=== PATIENT | female | born 1975 | race Caucasian/White ===

== ENCOUNTER → 2016-06-28 | Outpatient (CLI) | payer BC ==
[~2016-06-28] MED LIST: AMOX500C3 PO; BUPR75TA20 PO; DICY10CA55 PO; OMAPRAZOLE; OMEP40CA PO; ONDA4TAB65 PO; OXYC1TAB3 PO
== END | disposition home or self-care (01) ==
LOC: C.PAPS 16:29
PROVIDERS: ATTEND Obstetrics & Gynecology
DX: Z01.419 Encounter for gynecological examination (general) (routine) without abnormal findings (principal)

== ENCOUNTER → 2016-06-28 | Outpatient (CLI) | payer BC | END | disposition home or self-care (01) | LOC: C.LABSPEC 15:54 | PROVIDERS: ATTEND Obstetrics & Gynecology | DX: N89.8 Other specified noninflammatory disorders of vagina (principal) ==

== ENCOUNTER → 2016-06-28 | Outpatient (CLI) | payer BC ==
--- NOTE | 2016-06-28 15:33 | MAMMOGRAPHY REPORT ---
BILATERAL DIGITAL SCREENING MAMMOGRAM TOMOSYNTHESIS WITH CAD: 06/28/2016 CLINICAL HISTORY: Routine screening. Patient has no complaints. TECHNIQUE: Breast tomosynthesis in addition to standard 2D mammography was performed. Current study was also evaluated with a Computer Aided Detection (CAD) system. COMPARISON: Comparison is made to exams dated: 07/25/2012 mammogram - [facility], 01/27/2008, 02/19/2013 ultrasound, 02/19/2013 mammogram, 07/24/2011 ultrasound - [facility], and 09/24/2007. BREAST COMPOSITION: The tissue of both breasts is heterogeneously dense, which may obscure small ma sses. FINDINGS: There are multiple bilateral circumscribed masses scattered throughout the breasts, fluctu ating in size comparing to prior available mammograms, most compatible with fluctuating cysts. Ther e is a ribbon shaped metallic biopsy marker in the far superior, posterior right breast, only seen o n the MLO view denoting the site of prior benign biopsy. There are a few benign-appearing microcalc ifications bilaterally. No suspicious spiculated or irregular mass, focal architectural distortion or cluster of suspicious microcalcifications is seen. IMPRESSION: ACR BI-RADS CATEGORY 1: NEGATIVE There is no mammographic evidence of malignancy. A 1 year screening mammogram is recommended. The p atient will receive written notification of the results. Approximately 10% of breast cancers are not detected with mammography. A negative mammographic repor t should not delay biopsy if a clinically suggestive mass is present. Elmira Zimmerman M.D. ay/:06/28/2016 15:13:06 [place] Worker: Lara MARTINEZ(Tracee)(M), [facility] letter sent: Normal 1/2 BI-RADS Code: ACR BI-RADS Category 1: Negative
== END | disposition home or self-care (01) ==
LOC: C.MAMM 12:27
PROVIDERS: ATTEND Nurse Practitioner Family
DX: Z12.31 Encounter for screening mammogram for malignant neoplasm of breast (principal)

== ENCOUNTER 2016-11-26 12:52 | Emergency (ER) | payer BC ==
[~2016-11-26] VITALS: Ht 165.1 cm; Wt 75.2 kg
[~2016-11-26 12:52] MED LIST changes: -AMOX500C3 PO; -DICY10CA55 PO; -ONDA4TAB65 PO
[2016-11-26 12:59] VITALS: TEMP 36.8; Ht 165.1 cm; Wt 75.2 kg
[2016-11-26] MEDS ORDERED: MoRPHine SULFATE 10 MG/ML CARP/VIAL IV STA (13:17)
[2016-11-26] MEDS ORDERED: ONDANSETRON INJ 2 MG/ML 2 ML VIAL IV STA (13:17)
[2016-11-26] MEDS ORDERED: SODIUM CHLORIDE 0.9% 1000ML 1,000 ML IV STA (13:17)
[2016-11-26 13:55] LABS: BASO % 0.2 %; BASO ABS # 0.02 K/uL (0-0.2); COMPLETE YES; EOS % 0.2 %; HEMATOCRIT 45.8 % (37-47); IG% 0.2 %; LYMPH % 16.3 %; LYMPH ABS # 1.86 K/uL (1.2-3.4); MEAN CORPUSCULAR HGB CONC 34.5 g/dl (32-36); MEAN PLATELET VOLUME 10.1 fL (7.4-10.4); MONO % 6.5 %; NEUT % 76.6 %; PLATELET COUNT 303 K/uL (130-400); RED BLOOD COUNT 5.09 M/uL (4.2-5.4); WHITE BLOOD COUNT 11.44 K/uL (4.8-10.8)
[2016-11-26] MEDS ORDERED: OPTIRAY 320 IV PRN (14:00)
[2016-11-26 14:02] LABS: BUN/CREATININE RATIO 12.9 (10-20); CALCIUM 9.2 mg/dl (8.5-10.1); POTASSIUM 3.7 mmol/L (3.5-5.1)
[2016-11-26] MEDS ORDERED: AMOX500C3 PO (14:15)
[2016-11-26] MEDS ORDERED: ONDA4TAB65 PO (14:15)
[2016-11-26 14:39] LABS: URINE APPEARANCE CLEAR (CLEAR); URINE BILIRUBIN NEG (NEG); URINE COLOR YELLOW; URINE NITRITE NEG (NEG); URINE SPECIFIC GRAVITY 1.004 (1.000-1.030); UROBILINOGEN NEG (NEG); ZZUR CULT IF INDIC CLEAN CATCH NO
[2016-11-26 14:48] LABS: MANUAL MICROSCOPIC REQUIRED? NO; REVIEW REQ? NO
--- NOTE | 2016-11-26 16:14 | DIAGNOSTIC IMAGING REPORT ---
CT ABD/PELVIS IV AND ORAL CONT CLINICAL HISTORY: Persistent right lower quadrant abdominal pain. Bloody stools. COMPARISON STUDY: 08/18/2010 TECHNIQUE: Following the IV administration of 94 mL of Optiray-320, CT scan of the abdomen and pelvis was performed from the lung bases to the proximal femurs. Images are reviewed in the axial, sagittal, and coronal planes. IV contrast was administered without complication. A dose lowering technique was utilized adhering to the principles of ALARA. CT DOSE: 507.32 mGy.cm FINDINGS: Lower chest: There are multiple bilateral breast masses. Prior mammographic evaluation, felt that these represent fluctuating cysts. There is mild basilar atelectasis. Liver: The contrast-enhanced liver is normal in size, contour, and attenuation. There is no intrahepatic biliary ductal dilatation. The hepatic veins and portal veins are patent. Gallbladder: Unremarkable. Spleen: Normal in size and attenuation. Pancreas: Unremarkable. Adrenal glands: Unremarkable. Kidneys: There is symmetric renal cortical enhancement. The kidneys are normal in size without hydronephrosis. Bowel: There are no transition zones indicate bowel obstruction. There is no acute appendicitis. There are no findings to indicate acute diverticulitis. There is scattered colonic diverticula present. Peritoneum: There is no intraperitoneal free air or abdominal ascites. Vasculature: The abdominal aorta is normal in course and caliber. Adenopathy: None. Pelvic viscera: There is a 14 mm right ovarian follicle. The uterus is retroverted. Skeletal structures: No destructive osseous lesions are seen. IMPRESSION: 1. No evidence of bowel obstruction. No evidence of free air 2. No evidence of acute appendicitis 3. No evidence of acute diverticulitis. No acute inflammatory changes identified Electronically signed by: Reji Chua M.D. 11/26/2016 4:13 PM Dictated Date/Time: 11/26/2016 4:08 PM
[2016-11-26] MEDS ORDERED: DICY10CA55 PO (16:29)
--- NOTE | 2016-11-26 16:32 | EMERGENCY ROOM VISIT NOTE ---
History First contact with patient: 13:02 Chief Complaint: ABDOMINAL PAIN Stated Complaint: EXTREME ABD PAIN AND ANAL BLEEDING Nursing Triage Summary: Pt reports abdominal for 2weeks, seen by PCP last week provided stool sample on Sunday. Pt reports when she saw her PCP the pain was primarily in the RLQ. Pt now reports pain is diffuse across the entire abdomen. Pt reports being up from approx [id number] with cramping severe 10/10 abdominal pain, nausea, sweating. Now rates pain 8/10. Pt also reports blood in her stool charmaine time she moves her bowels. History of Present Illness The patient is a 41 year old female who presents to the Emergency Room with complaints of abdominal pain. The patient states that she has had "stomach problems" for the past 3 weeks. She reports she has had pain in the right lower abdomen as well as diarrhea. She was seen by her primary care provider last week and they ordered stool studies. She states that she took the stool sample to the lab 2 days ago but is unsure of the results. She states that she has been having pain in the right lower quadrant of her abdomen She states that she woke up from sleep this morning with severe pain all over her abdomen. She states that the pain has been severe since then. She has had associated nausea. She rates her discomfort an 8/10. She has had blood in the stools for the past few days. She does report a history of H. pylori infections and a history of diverticulitis. She states her last menstrual period was a few weeks ago. She denies vaginal discharge, urinary symptoms, chest pain or shortness of breath. Review of Systems A complete 10 point review of systems was reviewed with the patient with pertinent positives and negatives as per history of present illness. All else were negative. Social History Smoking Status: Never Smoker Current/Historical Medications Scheduled Amoxicillin (Amoxil), 500 MG PO TID Ondansetron Hcl (Zofran), Unknown Dose PO Q8 Scheduled PRN Dicyclomine Hcl (Bentyl), 1 CAP PO TID PRN for Pain Allergies Coded Allergies: Escitalopram (Verified Allergy, Unknown, rash/numb, 11/26/16) Physical Exam Vital Signs Date Time Temp Pulse Resp B/P (MAP) Pulse Ox O2 Delivery O2 Flow Rate FiO2 11/26/16 16:38 63 16 117/74 97 11/26/16 15:31 70 16 117/74 97 Room Air 11/26/16 14:01 77 18 134/87 99 Room Air 11/26/16 12:59 36.8 92 18 121/80 98 Room Air Physical Exam VITALS: Vitals are noted on the nurse's note and reviewed by myself. Vital signs stable. GENERAL: This is a 41-year-old female, in no acute distress, nondiaphoretic, well-developed well-nourished. HEENT: Normocephalic. PERRLA. EOMI. Nares patent. Mucous membranes moist. Neck is supple without nuchal rigidity. HEART: Regular rate and rhythm without murmurs gallops or rubs. LUNGS: Clear to auscultation bilaterally without wheezes, rales or rhonchi. ABDOMEN: Positive bowel sounds x 4. Soft, mild generalized tenderness to palpation. No focal tenderness. No guarding or rebound tenderness. NEURO: Patient was alert and oriented to person place and time. Medical Decision & Procedures ER Provider Diagnostic Interpretation: CT ABD/PELVIS IV AND ORAL CONT FINDINGS: Lower chest: There are multiple bilateral breast masses. Prior mammographic evaluation, felt that these represent fluctuating cysts. There is mild basilar atelectasis. Liver: The contrast-enhanced liver is normal in size, contour, and attenuation. There is no intrahepatic biliary ductal dilatation. The hepatic veins and portal veins are patent. Gallbladder: Unremarkable. Spleen: Normal in size and attenuation. Pancreas: Unremarkable. Adrenal glands: Unremarkable. Kidneys: There is symmetric renal cortical enhancement. The kidneys are normal in size without hydronephrosis. Bowel: There are no transition zones indicate bowel obstruction. There is no acute appendicitis. There are no findings to indicate acute diverticulitis. There is scattered colonic diverticula present. Peritoneum: There is no intraperitoneal free air or abdominal ascites. Vasculature: The abdominal aorta is normal in course and caliber. Adenopathy: None. Pelvic viscera: There is a 14 mm right ovarian follicle. The uterus is retroverted. Skeletal structures: No destructive osseous lesions are seen. IMPRESSION: 1. No evidence of bowel obstruction. No evidence of free air 2. No evidence of acute appendicitis 3. No evidence of acute diverticulitis. No acute inflammatory changes identified Laboratory Results 11/26/16 13:31 Red Blood Count 5.09, Mean Corpuscular Volume 90.0, Mean Corpuscular Hemoglobin 31.0, Mean Corpuscular Hemoglobin Concent 34.5, Mean Platelet Volume 10.1, Neutrophils (%) (Auto) 76.6, Lymphocytes (%) (Auto) 16.3, Monocytes (%) (Auto) 6.5, Eosinophils (%) (Auto) 0.2, Basophils (%) (Auto) 0.2, Neutrophils # (Auto) 8.78, Lymphocytes # (Auto) 1.86, Monocytes # (Auto) 0.74, Eosinophils # (Auto) 0.02, Basophils # (Auto) 0.02 11/26/16 13:31 Test 11/26/16 13:31 11/26/16 14:07 White Blood Count 11.44 K/uL (4.8-10.8) Red Blood Count 5.09 M/uL (4.2-5.4) Hemoglobin 15.8 g/dL (12.0-16.0) Hematocrit 45.8 % (37-47) Mean Corpuscular Volume 90.0 fL (80-100) Mean Corpuscular Hemoglobin 31.0 pg (25-34) Mean Corpuscular Hemoglobin Concent 34.5 g/dl (32-36) Platelet Count 303 K/uL (130-400) Mean Platelet Volume 10.1 fL (7.4-10.4) Neutrophils (%) (Auto) 76.6 % Lymphocytes (%) (Auto) 16.3 % Monocytes (%) (Auto) 6.5 % Eosinophils (%) (Auto) 0.2 % Basophils (%) (Auto) 0.2 % Neutrophils # (Auto) 8.78 K/uL (1.4-6.5) Lymphocytes # (Auto) 1.86 K/uL (1.2-3.4) Monocytes # (Auto) 0.74 K/uL (0.11-0.59) Eosinophils # (Auto) 0.02 K/uL (0-0.5) Basophils # (Auto) 0.02 K/uL (0-0.2) RDW Standard Deviation 42.5 fL (36.4-46.3) RDW Coefficient of Variation 12.9 % (11.5-14.5) Immature Granulocyte % (Auto) 0.2 % Immature Granulocyte # (Auto) 0.02 K/uL (0.00-0.02) Nucleated RBC Absolute Count (auto) 0.00 K/uL (0-0) Nucleated Red Blood Cells % 0.0 % Anion Gap 10.0 mmol/L (3-11) Est Creatinine Clear Calc Drug Dose 74.4 ml/min Estimated GFR () 80.5 Estimated GFR (Non- 69.4 BUN/Creatinine Ratio 12.9 (10-20) Calcium Level 9.2 mg/dl (8.5-10.1) Total Bilirubin 0.7 mg/dl (0.2-1) Direct Bilirubin 0.1 mg/dl (0-0.2) Aspartate Amino Transf (AST/SGOT) 13 U/L (15-37) Alanine Aminotransferase (ALT/SGPT) 21 U/L (12-78) Alkaline Phosphatase 71 U/L (45-117) Total Protein 8.8 gm/dl (6.4-8.2) Albumin 4.1 gm/dl (3.4-5.0) Lipase 130 U/L (73-393) Urine Color YELLOW Urine Appearance CLEAR (CLEAR) Urine pH 7.0 (4.5-7.5) Urine Specific [place] 1.004 (1.000-1.030) Urine Protein NEG (NEG) Urine Glucose (UA) NEG (NEG) Urine Ketones NEG (NEG) Urine Occult Blood NEG (NEG) Urine Nitrite NEG (NEG) Urine Bilirubin NEG (NEG) Urine Urobilinogen NEG (NEG) Urine Leukocyte Esterase NEG (NEG) Urine Test NEG (NEG) Medications Administered Medications (Trade) Dose Ordered Sig/Brian Route Start Time Stop Time Status Last Admin Dose Admin Sodium Chloride 1,000 ml @ 999 mls/hr Q1H1M STAT IV 11/26/16 13:17 11/26/16 14:17 DC 11/26/16 13:29 999 MLS/HR Morphine Sulfate (MoRPHine SULFATE INJ) 6 mg NOW STAT IV 11/26/16 13:17 11/26/16 13:19 DC 11/26/16 13:29 6 MG Ondansetron HCl (Zofran Inj) 4 mg NOW STAT IV 11/26/16 13:17 11/26/16 13:19 DC 11/26/16 13:29 4 MG ED Course The patient was evaluated as above. Labs were drawn and IV access was obtained. Patient was medicated with 1 L normal saline solution, 6 mg morphine and 4 mg Zofran. Patient was reevaluated and was drinking her CT prep without difficulty. CT of the abdomen and pelvis was performed and read by radiology as above. Patient was reevaluated and findings were discussed. Discharge instructions were reviewed with the patient. The patient verbalized understanding of my assessment and treatment plan and was discharged home in good condition. Medical Decision Differential diagnosis includes appendicitis, colitis, gastroenteritis, diverticulitis, cholecystitis, ovarian cyst, ovarian torsion, urinary tract infection, among others. The patient is a 41-year-old female who presents today complaining of right lower quadrant abdominal pain for the past 2 weeks which became worse overnight. Labs revealed a mild leukocytosis. Labs were otherwise unremarkable. CT of the abdomen and pelvis showed no acute findings. Patient has pending stool studies and I was not able to access these records. Patient was instructed to follow-up with her primary care provider for these results and for follow-up from today's visit. The patient was given a prescription for Bentyl to take for her discomfort. Based on the patient's presentation and work up, I feel the patient is stable for outpatient treatment. The patient was educated to return to the emergency department for any worsening of their current condition or new/concerning symptoms. She will follow up with her PCP. Medication reconciliation: I attest that I have personally reviewed the patient 's current medication list. Blood pressure screening: Patient was found to have normal blood pressure on screening and does not require follow-up. Impression Primary Impression: Diffuse abdominal pain Departure Information Dispostion Home / Self-Care Condition GOOD Prescriptions Dicyclomine Hcl (BENTYL) 10 Mg Cap 1 CAP PO TID Y for Pain for 7 Days, #21 CAP Prov: Lara Davidson ., NANCY 11/26/16 Referrals Rody Colon (PCP) Patient Instructions My [facility] Additional Instructions You have been treated in the Emergency Department your Abdominal Pain. Laboratory results and imaging studies have ruled out any emergent causes for your abdominal pain which would warrant admission or surgery. Take the Bentyl 3 times daily as needed for abdominal pain. For pain control, you can use the following [id number]-fjcvlxe medicines (if >12 yo): - Regular strength (325mg/tab) Tylenol (acetaminophen) 2 tabs every 4-6 hours as needed. Do not exceed 12 tablets in a 24 hour period. Avoid taking more than 4 grams (4000 mg) of Tylenol per day. This includes any other sources of acetaminophen you may take on a regular basis. - Regular strength (200 mg/tab) Advil (ibuprofen) 1-2 tabs every 4-6 hours as needed. Do not exceed a dose of 3200 mg per day. Drink plenty of water and stay well hydrated. As with any trip to the Emergency Department, you should follow-up with your Primary Care Provider from today's visit. Call tomorrow to schedule follow-up within the next 2-3 days. Return to the emergency department if your symptoms persist despite treatment plan outlined above or if the following symptoms occur: Intractable abdominal pain, vomiting, high fevers, or any worsening or new/concerning symptoms.
[2016-11-26 16:38] VITALS: BP 117/74; PULSE 63; O2SAT 97
== END 2016-11-26 16:40 | disposition home or self-care (01) ==
LOC: C.EDB 12:53 → C.EDC 16:40
DX: R10.31 Right lower quadrant pain (principal); R19.7 Diarrhea, unspecified

== ENCOUNTER → 2017-05-09 | Outpatient (CLI) | payer BC, OTHER ==
[~2017-05-09] MED LIST changes: +AMOX500C3 PO; -BUPR75TA20 PO; -OMAPRAZOLE; -OMEP40CA PO; +ONDA4TAB65 PO; -OXYC1TAB3 PO
--- NOTE | 2017-05-09 10:59 | DIAGNOSTIC IMAGING REPORT ---
R HAND MIN 3 VIEWS CLINICAL HISTORY: RIGHT HAND PAIN pain COMPARISON: None. DISCUSSION: The bones and joint spaces appear intact. There is no evidence of fracture, dislocation or bony disease. There is no evidence for soft tissue swelling. IMPRESSION: Negative study. The above report was generated using voice recognition software. It may contain grammatical, syntax or spelling errors. Electronically signed by: Marquez Diaz M.D. 05/09/2017 10:57 AM Dictated Date/Time: 05/09/2017 10:55 AM
== END | disposition home or self-care (01) ==
LOC: C.RDSM 10:31
PROVIDERS: ATTEND Internal Medicine
DX: M79.641 Pain in right hand (principal)

== ENCOUNTER → 2017-07-03 | Outpatient (CLI) | payer OTHER ==
--- NOTE | 2017-07-04 15:53 | MAMMOGRAPHY REPORT ---
BILATERAL DIGITAL SCREENING MAMMOGRAM TOMOSYNTHESIS WITH CAD: 07/03/2017 CLINICAL HISTORY: Routine screening. Patient has no complaints. TECHNIQUE: Breast tomosynthesis in addition to standard 2D mammography was performed. Current study was also evaluated with a Computer Aided Detection (CAD) system. COMPARISON: Comparison is made to exams dated: 06/28/2016 mammogram, 07/25/2012 mammogram, 07/24/2011 m ammogram - [facility], 01/27/2008, 09/24/2007, and 02/19/2013 ultrasound - [facility]. BREAST COMPOSITION: The tissue of both breasts is heterogeneously dense, which may obscure small mas ses. FINDINGS: There are multiple bilateral circumscribed round to oval masses scattered in both breasts, fluctuating in size comparing to prior mammograms, most likely representing fluctuating cysts. No aponte spicious spiculated or irregular mass, architectural distortion or cluster of microcalcifications is seen. IMPRESSION: ACR BI-RADS CATEGORY 1: NEGATIVE There is no mammographic evidence of malignancy. A 1 year screening mammogram is recommended. The pa tient will receive written notification of the results. Approximately 10% of breast cancers are not detected with mammography. A negative mammographic report should not delay biopsy if a clinically suggestive mass is present. Elmira Zimmerman M.D. ay/:07/03/2017 16:37:53 [employer]: Cassie MARTINEZ(R)(M), [facility] letter sent: Normal 1/2 BI-RADS Code: ACR BI-RADS Category 1: Negative
== END | disposition home or self-care (01) ==
LOC: C.MAMM 08:16
PROVIDERS: ATTEND Nurse Practitioner Family
DX: Z12.31 Encounter for screening mammogram for malignant neoplasm of breast (principal)

== ENCOUNTER 2023-06-01 08:15 | Observation (INO) ==
--- NOTE | 2023-06-01 09:09 | Emergency Department Note ---
History of Present Illness General Chief complaint: Headache Stated complaint: HEADACHES NOT GETTING BETTER AFTER 48HRS Time Seen by Provider: 06/01/23 08:26 History of Present Illness Maximum Pain Intensity: 7 This is a 48-year-old otherwise healthy female that presents to the emergency department via private vehicle with complaints of "headache". The patient notes that she has been experiencing a headache for the past 10 days. This started the day after she returned from her trip to the [facility] which was a cruise to [place], [facility] and the [facility]. She states that there has been no preceding illness or current illness symptoms other than the headache. No fevers or chills. No sinus congestion. No photophobia. She denies any history of headaches. No head trauma or injury. She does have nausea intermittently with the headaches. The pain is described as a throbbing type sensation. No aggravating or alleviating factors. Current pain 8/10. Patient notes that when she was here recently in the ED testing did show positive Lyme test and was started on oral doxycycline. She is also on oral prednisone. She notes no improvement of symptoms. She states that although the headache is present at all times, it seems to worsen around 2:30 AM and she is awoken from her sleep by the pain. Patient also notes that her menstrual cycle was from May 08 to the 6 this month which is regular for her and normal but notes that yesterday she began with vaginal bleeding again which is unusual for her. Patient notes that the pain initially was in the frontal regions but now has migrated to the right lateral/posterior occipital region of the head. Home Medications Medication Instructions Recorded Confirmed Type doxycycline hyclate 100 mg tablet 100 mg PO BID 14 days #28 tabs 05/30/23 06/01/23 Rx prednisone 50 mg tablet 50 mg PO DAILY 5 days #5 tabs 05/30/23 06/01/23 Rx Allergies Allergy/AdvReac Type Severity Reaction Status Date / Time escitalopram Allergy Intermediate rash/numb Verified 05/30/23 10:45 Past Med/Surg History Medical History History of diverticulitis History of COVID-19 05/2020 - loss of taste and smell for about 1 year Early December 2021 -- severe fatigue, severe muscle pain, fever, cough > resolved H. pylori infection Hx (has had it a total of 14 times, last time in November 2021) Infertility Hx of fertility drugs, clomid Breast cyst Surgical History History of reduction mammoplasty History of esophagogastroduodenoscopy (EGD) History of colonoscopy S/P LASIK surgery H/O wisdom tooth extraction Family History Aunt Breast cancer Maternal Ovarian cancer Other Lung cancer Renal cell carcinoma Denies family history of Prostate cancer Colorectal cancer Social History Smoking Status: Light tobacco smoker Tobacco Type: Cigarettes Second Hand Exposure: No; Do You Dip or Chew Tobacco: No; Hx Alcohol Use: Yes Alcohol type: beer and wine Hx Substance Use: No Preferred Language: Spanish Communication Ability: Effective Acid Maker Required: No Beliefs That Will Affect Care: None Current Living Situation: Spouse Feels Safe at Home: Yes Safety Concerns: Feels Safe At This Time Assistive Devices: None Review of Systems A total of 10 systems reviewed and were otherwise negative Physical Exam Vital Signs Vital Signs - 24 hr 06/01/23 08:23 06/01/23 10:16 06/01/23 12:00 Temperature 36.7 C Temperature Source Oral Pulse Rate 73 Pulse Rate [Radial] 62 66 Pulse Rhythm [Radial] Regular Regular Pulse Strength [Radial] Normal Respiratory Rate 20 18 16 Respiratory Effort / Characteristics Non-Labored Non-Labored Respiratory Depth Normal Normal Respiratory Pattern Regular Regular Blood Pressure 151/90 H Blood Pressure [Right Arm] 137/86 120/78 Blood Pressure Mean 110 Blood Pressure Mean [Right Arm] 103 92 Blood Pressure Position Sitting Pulse Oximetry 99 96 98 Oxygen Delivery Method Room Air Room Air Room Air Sepsis Recent Fever Within 48 Hours No Sepsis New/Unexplained Change in Mental Status No Sepsis Action Taken by Nursing No Action Required 06/01/23 14:00 Temperature Temperature Source Pulse Rate Pulse Rate [Radial] 74 Pulse Rhythm [Radial] Regular Pulse Strength [Radial] Respiratory Rate 18 Respiratory Effort / Characteristics Non-Labored Respiratory Depth Normal Respiratory Pattern Regular Blood Pressure Blood Pressure [Right Arm] 130/80 Blood Pressure Mean Blood Pressure Mean [Right Arm] 96 Blood Pressure Position Pulse Oximetry 99 Oxygen Delivery Method Room Air Sepsis Recent Fever Within 48 Hours Sepsis New/Unexplained Change in Mental Status Sepsis Action Taken by Nursing VITAL SIGNS - Vital signs and nursing notes were reviewed. Stable and afebrile. GENERAL - 48-year-old female appearing her stated age who is in no acute distress. Communicates well with provider and answers questions appropriately. SKIN - Without rashes. HEAD - NC/AT. EYES - PERRL with EOMI bilaterally. Sclera anicteric. Palpebral conjunctiva pink and moist with no injection noted. EARS - No deformities of external structures noted on gross examination bilaterally. External auditory canals without discharge or otorrhea. Tympanic membranes pearly cates without retraction or bulging. No fluid or purulent material visualized behind the TM. Handle of malleus, umbo, cone of light, pars tensa/flaccid all easily visualized. NOSE - Midline and without cyanosis. No epistaxis or purulent drainage noted. Septum midline without deviation or septal hematoma noted. MOUTH/OROPHARYNX - Without perioral cyanosis. Buccal mucosa pink and moist and without leukoplakia. Tongue midline with equal elevation of palate bilaterally. No tonsillar hypertrophy, erythema, or exudates noted. Good dentition noted. NECK - Neck with FROM. Supple to palpation. Good lymphadenopathy noted. No nuchal rigidity. LUNGS - Chest wall symmetric without accessory muscle use, intercostals retractions, or central cyanosis. Normal vesicular breath sounds CTA B/L. No wheezes, rales, or rhonchi appreciated. CARDIAC - RRR with S1/S2. No murmur, rubs, or gallops appreciated. EXTREMITIES - No clubbing or peripheral cyanosis. +5/5 strength noted in UE/LE bilaterally. NEUROLOGIC - Cranial nerves II through XII grossly intact. Sensory intact to light touch throughout. PSYCH - A&Ox3 and cooperates fully with examiner. Pt is very pleasant and interacts well with examiner. Course Administered Medications Discontinued Medications Acetaminophen (Acetaminophen 325 Mg Tab) 650 mg PO NOW STA Stop: 06/01/23 11:28 Last Admin: 06/01/23 11:59 Dose: 650 mg Documented By: ELTON Dexamethasone Sodium Phosphate (DexamethasonePf 10 Mg/Ml Vial) 10 mg IV NOW ONE Stop: 06/01/23 11:32 Last Admin: 06/01/23 11:59 Dose: 10 mg Documented By: ELTON Diphenhydramine HCl (Diphenhydramine 50 Mg/Ml Vial) 25 mg IV NOW STA Stop: 06/01/23 09:11 Last Admin: 06/01/23 09:22 Dose: 25 mg Documented By: ELTON Gadobutrol (Gadobutrol 65ml Vial) 7.5 ml IV ONCE ONE Stop: 06/01/23 20:00 Last Admin: 06/01/23 19:59 Dose: 7.5 ml Documented By: MECHE Sodium Chloride (Nss) 1,000 mls @ 999 mls/hr IV .Q1H1M LEONELA Stop: 06/01/23 10:15 Last Infusion: 06/01/23 10:33 Dose: Infused Documented By: Admin: 06/01/23 09:20 Dose: 999 mls/hr Documented By: ELTON Magnesium Sulfate/Dextrose (Magnesium Sulfate / D5w) 1 gm in 100 mls @ 100 mls/hr IV NOW ONE Stop: 06/01/23 12:30 Last Infusion: 06/01/23 14:05 Dose: Infused Documented By: Admin: 06/01/23 11:58 Dose: 100 mls/hr Documented By: ELTON Ioversol (Optiray 320 125ml) 119 ml IV ONCE ONE Stop: 06/01/23 10:22 Last Admin: 06/01/23 10:23 Dose: 119 ml Documented By: DEION Ketorolac Tromethamine (Ketorolac Tromethamine 15 Mg/Ml Vial) 10 mg IV NOW ONE Stop: 06/01/23 11:32 Last Admin: 06/01/23 11:59 Dose: 10 mg Documented By: ELTON Lorazepam (Lorazepam 1 Mg/1 Ml Syr Ed Inj Use) 1 mg IV ONE STA Stop: 06/01/23 14:43 Last Admin: 06/01/23 14:54 Dose: 1 mg Documented By: ELTON Metoclopramide HCl (Metoclopramide Hcl Inj 5 Mg/Ml 2 Ml Vial) 5 mg IV ONE ONE Stop: 06/01/23 09:11 Last Admin: 06/01/23 09:22 Dose: 5 mg Documented By: ELTON Potassium Chloride (Potassium Chloride Crtab 20 Meq Tabcr) 40 meq PO NOW STA Stop: 06/01/23 16:53 Last Admin: 06/01/23 17:44 Dose: 40 meq Documented By: JERAD Medical Decision Making Laboratory Data 06/01/23 09:27 06/01/23 09:27 Lab Results 06/01/23 06/01/23 Range/Units 09:27 14:50 WBC 9.19 (4.8-10.8) K/ul RBC 4.60 (4.20-5.40) M/uL Hgb 14.1 (12.0-16.0) g/dl Hct 41.9 (37.0-47.0) % MCV 91.1 (80.0-100.0) fL MCH 30.7 (25.0-34.0) pg MCHC 33.7 (32.0-36.0) g/dL RDW Std Deviation 44.7 (36.4-46.3) fL RDW Coeff of Levi 13.4 (11.5-14.5) % Plt Count 289 (130-400) K/uL MPV 11.0 (9.4-12.4) fL Immature Gran % (Auto) 0.4 % Neut % (Auto) 65.4 % Lymph % (Auto) 26.8 % [place] % (Auto) 7.0 % Eos % (Auto) 0.2 % Baso % (Auto) 0.2 % Neut # (Auto) 6.01 (1.40-6.50) K/uL Lymph # (Auto) 2.46 (1.20-3.40) K/uL [place] # (Auto) 0.64 H (0.11-0.59) K/uL Eos # (Auto) 0.02 (0.00-0.50) K/uL Baso # (Auto) 0.02 (0.00-0.20) K/uL Immature Gran # (Auto) 0.04 (0.01-0.20) K/uL ESR 13 (0-20) mm/hr PT 10.8 (9.0-12.0) Seconds INR 1.0 (0.9-1.1) APTT 26 (21-31) Seconds PTT Ratio 0.9 Sodium 141 (136-145) mmol/L Potassium 3.3 L (3.5-5.1) mmol/L Chloride 108 H (98-107) mmol/L Carbon Dioxide 27 (21-32) mmol/L Anion Gap 6 (3-11) BUN 21 (6-23) mg/dl Creatinine 0.80 (0.6-1.2) mg/dl Est Cr Clr Drug Dosing 90.3 ml/min Est GFR ( Amer) 100.3 ml/min Est GFR (Non-Af Amer) 86.6 ml/min BUN/Creatinine Ratio 26.3 H (10-20) Glucose 94 (70-99(Fasting)) mg/dl Calcium 9.1 (8.6-10.3) mg/dl Total Bilirubin 0.5 (0.2-1.0) mg/dl AST 11 L (13-39) U/L ALT 8 (7-52) U/L Alkaline Phosphatase 48 (34-104) U/L C-Reactive Protein < 0.50 (0-0.5) mg/dl Total Protein 7.2 (6.0-8.3) gm/dl Albumin 4.2 (3.4-5.0) gm/dl Globulin 3.0 (2.5-4.0) gm/dl Albumin/Globulin Ratio 1.4 (0.9-2) HCG, Qual Negative (Negative) Fluid Comment CSF Appearance Clear CSF Color Colorless Xanthrochromic No xanthochromia CSF WBC 0 (0-5) CSF RBC 0 (0-) CSF Cell Count Tube # 3 CSF Chemistry Tube # 1 CSF Glucose 66 (40-70) mg/dl CSF Total Protein 28.0 (15-45) mg/dl CSF C.neoform/gat PCR Not Detected (NotDetected) CSF CMV DNA (PCR) Not Detected (NotDetected) CSF Enterovirus (PCR) Not Detected (NotDetected) CSF E. coli K1 (PCR) Not Detected (NotDetected) CSF H. influenzae (PCR) Not Detected (NotDetected) CSF HSV I (PCR) Not Detected (NotDetected) CSF HSV II (PCR) Not Detected (NotDetected) CSF HHV 6 (PCR) Not Detected (NotDetected) CSF L.monocytogenes PCR Not Detected (NotDetected) CSF N. meningitidis PCR Not Detected (NotDetected) CSF Parechovirus (PCR) Not Detected (NotDetected) CSF S. agalactiae (PCR) Not Detected (NotDetected) CSF S. pneumoniae (PCR) Not Detected (NotDetected) CSF VZV DNA (PCR) Not Detected (NotDetected) Imaging Data Radiologist's Impression: Head CTA 06/01/23 09:07 CT angio head wo/w CLINICAL HISTORY: R sided headache x 10 days, severe COMPARISON STUDY: Head CT May 30, 2023. TECHNIQUE: Unenhanced and arterial phase imaging of the head was performed. Intravenous injection of 119 cc of Optiray 320 IV was uneventful. Sagittal and coronal reconstructions were viewed as well as maximal intensity projections on an independent 3-D workstation. Automated exposure control was utilized for the study. A dose lowering technique was utilized adhering to the principles of ALARA. FINDINGS: No acute intracranial hemorrhage, midline shift or mass effect is present. Ventricular system is normal. Basal cisterns are patent. There are no extra-axial collections. Cates-white differentiation is maintained. There are no findings to suggest acute dural sinus thrombosis or acute territorial infarct. Bilateral basal ganglia calcification is incidentally noted. The bilateral M1, M2, A1 and A2 segments are patent. There is no vessel occlusion. Posterior circulation is intact. There is no intracranial aneurysm. Major dural sinuses are patent. IMPRESSION: 1. No acute intracranial findings. 2. Unremarkable CTA of the head. ACT 112: Negative or not required by law. Electronically signed by: Stephane Clark M.D. 06/01/2023 10:42 AM Neck CTA 06/01/23 09:07 CT angio neck with con CLINICAL HISTORY: R sided headache x 10 days, severe TECHNIQUE: CT angiography of the neck was performed following intravenous administration of iodinated contrast. Coronal and sagittal MIPS were obtained from the axial data set and were submitted for review. Automated dose lowering techniques and/or adjustment according to patient size were utilized for this examination. All measurements were calculated based on NASCET criteria. Comparison: None available at the time of this dictation. FINDINGS: Lungs and soft tissues are unremarkable. CTA Neck: A 3 vessel aortic arch is shown. There is no significant atherosclerotic plaque in the aortic arch or the origins of the innominate, left common carotid, and left subclavian arteries. The common carotid, external carotid, cervical segments of the internal carotid arteries, and the cervical segments of the vertebral arteries are patent without hemodynamically significant stenosis. The left vertebral artery is dominant. IMPRESSION: No occlusion, hemodynamically significant stenosis, or dissection in the major cervical arteries. Assessment of stenosis of the internal carotid arteries is based on NASCET criteria. ACT 112: Negative or not required by law. Electronically signed by: Shadi Cowart M.D. 06/01/2023 10:40 AM MDM Narrative Patient was seen and evaluated as above in room B10. Review was performed of nursing notes and vital signs. I did review pertinent previous visits and patient history. After obtaining a thorough history and physical examination the above work up was performed. Patient presents to us today with an ongoing headache for the past 10 days. No history of similar. It is on the right side of the head and is now more in the posterior/occipital region on the right rather than frontal region which was where it initially had started. This began shortly after return from a trip to the [facility] via cruise. The patient does appear to be in pain on exam. Vital signs stable. Currently she is on oral prednisone and oral doxycycline. She notes positive Lyme test on recent visit. Per review there was positive IgM. Western blot was pending and this test actually returned while I was caring for the patient here today. Upon review of this Western blot test, no IgG reactive bands were noted. Only 1 out of 3 IgM bands were reactive. Options of care were discussed with the patient. Noting the patient's ongoing headache that is waking her from sleep without history of similar, we will proceed with further evaluation. CTA of the head and neck was obtained. This was essentially negative. Labs reveal no leukocytosis or concerning anemia. No emergent metabolic disturbance. Mild hypokalemia 3.3. No evidence of kidney or liver failure. hCG negative. Urinalysis reveals blood, epithelial cells and red cells. No bacteria. The patient did receive several medications here to help mitigate the headache with minimal relief. Despite medication therapy here, the headache persisted. At this time I do believe that further evaluation and management in the inpatient setting is warranted noting the intractable headache. Although low suspicion for meningitis noted, upon review of the case with hospitalist for possible admission, recommendation was to proceed with LP. Please refer to physician note regarding procedure. CSF studies began to return and were overall reassuring. Hospitalist did evaluate the patient. Please refer to further documentation regarding her stay. Case was discussed with the attending physician. GCS: 15 In the evaluation and treatment of this patient, the following differential diagnoses were considered: Concussion, Contrecoup Injury, Brain Tumor, Depression, Encephalitis, Hypothyroidism, Meningitis, CVA, TIA, Migraine, Cluster Headache, Intracranial Abnormality, Intracranial Hemorrhage, Subdural Hematoma, Subarachnoid Hemorrhage, Hydrocephalus, among others. Impression & Plan Intractable headache Discharge Plan Visit Data Chief Complaint: Headache Stated Complaint: HEADACHES NOT GETTING BETTER AFTER 48HRS ED Provider: Flip Lee ED Midlevel Provider: Hussain Jimenez Discharge Problem: Intractable headache Patient Disposition: Admitted As Inpatient Condition: Good Discharge Instructions Interventions: ED Discharge Assessment Last Done: 06/01/23 20:28
[2023-06-01] MEDS ORDERED: diphenhydrAMINE 50 MG/ML VIAL IV STA (09:10)
[2023-06-01] MEDS ORDERED: METOCLOPRAMIDE HCL INJ 5 MG/ML 2 ML VIAL IV ONE (09:10)
[2023-06-01] MEDS ORDERED: SODIUM CHLORIDE 0.9% 1,000 ML IV SCH (09:15)
[2023-06-01 09:51] LABS: Basophils # (auto) 0.02 K/uL (0.00-0.20); Basophils % (auto) 0.2 %; Eosinophils # (auto) 0.02 K/uL (0.00-0.50); Eosinophils % (auto) 0.2 %; Hematocrit (blood only) 41.9 % (37.0-47.0); Hemoglobin 14.1 g/dl (12.0-16.0); Immature Granulocytes # (auto) 0.04 K/uL (0.01-0.20); Immature Granulocytes % (auto) 0.4 %; Lymphocytes # (auto) 2.46 K/uL (1.20-3.40); Lymphocytes % (auto) 26.8 %; Mean Corpuscular Hemoglobin 30.7 pg (25.0-34.0); Mean Corpuscular Hgb Conc 33.7 g/dL (32.0-36.0); Mean Corpuscular Volume 91.1 fL (80.0-100.0); Monocytes # (auto) 0.64 K/uL (0.11-0.59); Neutrophils # (auto) 6.01 K/uL (1.40-6.50); Neutrophils % (auto) 65.4 %; Platelet Count 289 K/uL (130-400); RDW Coefficient of Variation 13.4 % (11.5-14.5); RDW Standard Deviation 44.7 fL (36.4-46.3); White Blood Count 9.19 K/ul (4.8-10.8)
[2023-06-01 10:08] LABS: Albumin Globulin Ratio 1.4 (0.9-2); Albumin Level 4.2 gm/dl (3.4-5.0); BUN Creatinine Ratio 26.3 (10-20); Bilirubin,Total 0.5 mg/dl (0.2-1.0); Calcium 9.1 mg/dl (8.6-10.3); Creatinine Clr Calc Pharmacy 90.3 ml/min; Est GFR (African American) 100.3 ml/min; Est GFR (Non-African American) 86.6 ml/min; Potassium 3.3 mmol/L (3.5-5.1); Total Protein 7.2 gm/dl (6.0-8.3)
[2023-06-01 10:10] LABS: Pregnancy Test, Serum Negative (Negative)
[2023-06-01 10:21] LABS: Partial Thromboplastin Ratio 0.9; Partial Thromboplastin Time 26 Seconds (21-31); Prothrombin Time 10.8 Seconds (9.0-12.0)
[2023-06-01] MEDS ORDERED: OPTIRAY 320 125ml IV ONE (10:21)
--- NOTE | 2023-06-01 10:41 | CT Scan Report ---
CT angio neck with con CLINICAL HISTORY: R sided headache x 10 days, severe TECHNIQUE: CT angiography of the neck was performed following intravenous administration of iodinated contrast. Coronal and sagittal MIPS were obtained from the axial data set and were submitted for rev iew. Automated dose lowering techniques and/or adjustment according to patient size were utilized fo r this examination. All measurements were calculated based on NASCET criteria. Comparison: None available at the time of this dictation. FINDINGS: Lungs and soft tissues are unremarkable. CTA Neck: A 3 vessel aortic arch is shown. There is no significant atherosclerotic plaque in the aor tic arch or the origins of the innominate, left common carotid, and left subclavian arteries. The co mmon carotid, external carotid, cervical segments of the internal carotid arteries, and the cervical segments of the vertebral arteries are patent without hemodynamically significant stenosis. The left vertebral artery is dominant. IMPRESSION: No occlusion, hemodynamically significant stenosis, or dissection in the major cervical arteries. Assessment of stenosis of the internal carotid arteries is based on NASCET criteria. ACT 112: Negative or not required by law. Electronically signed by: Shadi Cowart M.D. 06/01/2023 10:40 AM
--- NOTE | 2023-06-01 10:43 | CT Scan Report ---
CT angio head wo/w CLINICAL HISTORY: R sided headache x 10 days, severe COMPARISON STUDY: Head CT May 30, 2023. TECHNIQUE: Unenhanced and arterial phase imaging of the head was performed. Intravenous injection of 119 cc of Optiray 320 IV was uneventful. Sagittal and coronal reconstructions were viewed as well as maximal intensity projections on an independent 3-D workstation. Automated exposure control was utili [employer] for the study. A dose lowering technique was utilized adhering to the principles of ALARA. FINDINGS: No acute intracranial hemorrhage, midline shift or mass effect is present. Ventricular syst em is normal. Basal cisterns are patent. There are no extra-axial collections. Cates-white differentia tion is maintained. There are no findings to suggest acute dural sinus thrombosis or acute territoria l infarct. Bilateral basal ganglia calcification is incidentally noted. The bilateral M1, M2, A1 and A2 segments are patent. There is no vessel occlusion. Posterior circulation is intact. There is no in tracranial aneurysm. Major dural sinuses are patent. IMPRESSION: 1. No acute intracranial findings. 2. Unremarkable CTA of the head. ACT 112: Negative or not required by law. Electronically signed by: Stephane Clark M.D. 06/01/2023 10:42 AM
[2023-06-01] MEDS ORDERED: ACETAMINOPHEN 325 MG TAB PO STA (11:27)
[2023-06-01] MEDS ORDERED: dexAMETHasone**PF** 10 MG/ML VIAL IV ONE (11:31)
[2023-06-01] MEDS ORDERED: KETOROLAC TROMETHAMINE 15 MG/ML VIAL IV ONE (11:31)
[2023-06-01] MEDS ORDERED: MAGNESIUM SULFATE / D5W 1 GM/100 ML BAG IV ONE (11:31)
--- NOTE | 2023-06-01 14:27 | History & Physical Report ---
Date of Service June 01, 2023 History of Present Illness Chief Complaint: Headache x 10 days Primary Care Provider: Brenda Riley DO Eunice is a 48 year old female with Allergies Allergy/AdvReac Type Severity Reaction Status Date / Time escitalopram Allergy Intermediate rash/numb Verified 05/30/23 10:45 Home Medications Medication Instructions Recorded Confirmed Type doxycycline hyclate 100 mg tablet 100 mg PO BID 14 days #28 tabs 05/30/23 06/01/23 Rx prednisone 50 mg tablet 50 mg PO DAILY 5 days #5 tabs 05/30/23 06/01/23 Rx Past Med/Surg History Medical History History of diverticulitis History of COVID-19 05/2020 - loss of taste and smell for about 1 year Early December 2021 -- severe fatigue, severe muscle pain, fever, cough > resolved H. pylori infection Hx (has had it a total of 14 times, last time in November 2021) Infertility Hx of fertility drugs, clomid Breast cyst Surgical History History of reduction mammoplasty History of esophagogastroduodenoscopy (EGD) History of colonoscopy S/P LASIK surgery H/O wisdom tooth extraction Family History Aunt Breast cancer Maternal Ovarian cancer Other Lung cancer Renal cell carcinoma Denies family history of Prostate cancer Colorectal cancer Social History Smoking Status: Never smoker Tobacco Type: Cigarettes Second Hand Exposure: No; Do You Dip or Chew Tobacco: No; Hx Alcohol Use: Yes Alcohol type: wine Hx Substance Use: No Preferred Language: [place] Citizen Communication Ability: Effective Podiatric Surgeon Required: No Beliefs That Will Affect Care: None Current Living Situation: Spouse and Family Feels Safe at Home: Yes Assistive Devices: None Results & Data Results & Data Vital Signs (Past 12 Hours) Vital Signs Temp Pulse Pulse Resp BP BP Pulse Ox 06/01/23 14:00 74 18 130/80 99 06/01/23 12:00 66 16 120/78 98 06/01/23 10:16 62 18 137/86 96 06/01/23 08:23 36.7 C 73 20 151/90 H 99 O2 Del Method 06/01/23 14:00 Room Air 06/01/23 12:00 Room Air 06/01/23 10:16 Room Air 06/01/23 08:23 Room Air PG Care Time/CCT Total # of Minutes Spent Total Time Spent with Patient: Total time spent is greater than 50% in coordination of care (as documented) at patient's floor/unit and/or counseling patient: Coding
[2023-06-01] MEDS ORDERED: LORazepam 1 MG/1 ML SYR ED Inj Use IV STA (14:42)
--- NOTE | 2023-06-01 15:09 | Emergency Department Note ---
ED Visit Note Lumbar Puncture Indication: Intractable headache Verbal consent was obtained after the risks and benefits were explained, including but not limited to headache, bleeding/clotting, scarring, infection, pain, and bone/joint/nerve damage. At this time, the risks of the procedure are less than the risks of NOT performing the procedure. A time out was taken and the correct patient and site identified. The patient was placed in the left lumbar decubitus position and the back was prepped with betadine and draped in the standard fashion. The L3 intervertebral space was identified, anesthetized locally with 1% lidocaine without epinephrine, and the spinal needle was inserted through the skin with the bevel parallel to the dural fibers. The needle was carefully advanced into the lumbar cistern, opening pressure of 14 cmH2O and 4 tubes of clear CSF was obtained. The stylet was replaced and the needle was removed. A bandaid was placed and the patient was placed in the supine position. The patient tolerated the procedure well and there were no complications. .
[2023-06-01 15:33] LABS: Appearance CSF Clear; CSF Count Tube # 3; CSF Xanthrochromic No xanthochromia; Color CSF Colorless
[2023-06-01 15:40] LABS: Red Blood Cell CSF Manual 0 (0-); White Blood Cell CSF Manual 0 (0-5)
--- NOTE | 2023-06-01 15:50 | History & Physical Report ---
Date of Service June 01, 2023 Assessment & Plan (1) Acute headache: Plan: Unremarkable CT head/CT angiogram head/neck No significant headache history ESR within normal limits and not typical story of giant cell arteritis Lyme IgM 1/3 positive essentially nondiagnostic of Lyme disease per CDC guidance Therefore recommend lumbar puncture for further investigation with results pending at time of admission - subsequently unremarkable Discussed with Dr Monsivais and will order MRI brain and have neurology review her tomorrow Plan VTE Prophylaxis - low risk Diet - regular Disposition - observation to med/surg Admission and Anticipated Discharge Date Admission Date: June 01, 2023 History of Present Illness Chief Complaint: Headache Primary Care Provider: Brenda Riley DO Eunice Gage is a 48-year-old female who presents to the ER with headache. She was seen in the emergency room 2 days ago with the same complaint having had it for the last week. She was recently on a cruise to the [facility] returning approximately 2 weeks ago. The headache started a few days after she got back possibly associated with a nose bleed. Initially attributed to the change in weather. Bilateral frontal/temporal/maxillary. No associated photophobia, nausea, dizziness. She has no significant history of headaches or migraines. In the ER 2 days ago she received dexamethasone, diphenhydramine, normal saline, Toradol, Compazine. Her headache improved and she was discharged with a possible diagnosis of Lyme disease with initial total Immunoassay positive for IgM but subsequent Western Blot with only 1/3 immunoglobulins positive. She has been taking doxycycline but her headache has continued to get worse and has changed now to be more on just the right side and going more posteriorly. Getting progressively worse every day. She is not sleeping and waking up with a headache every morning around 2:30am. Taking ibuprofen only helps for around an hour. Despite additional headache cocktail in the ER of metoclopramide, diphenhydramine, NSS 1L bolus, Acetaminophen, Toradol, Dexamethasone, Magnesium sulfate and lorazepam her headache remains. She denies any head injury or significant neck strain. She was seen by her adjunct lecturer yesterday due to concern perhaps she needed a prescription however no problems with her eyes were found. Sexual active with her . No illicit substances, marijuana use or daily alcohol use. Occasional cigarettes (socially x3/month). Allergies Allergy/AdvReac Type Severity Reaction Status Date / Time escitalopram Allergy Intermediate rash/numb Verified 05/30/23 10:45 Home Medications Medication Instructions Recorded Confirmed Type doxycycline hyclate 100 mg tablet 100 mg PO BID 14 days #28 tabs 05/30/23 06/01/23 Rx prednisone 50 mg tablet 50 mg PO DAILY 5 days #5 tabs 05/30/23 06/01/23 Rx Past Med/Surg History Medical History History of diverticulitis History of COVID-19 05/2020 - loss of taste and smell for about 1 year Early December 2021 -- severe fatigue, severe muscle pain, fever, cough > resolved H. pylori infection Hx (has had it a total of 14 times, last time in November 2021) Infertility Hx of fertility drugs, clomid Breast cyst Surgical History History of reduction mammoplasty History of esophagogastroduodenoscopy (EGD) History of colonoscopy S/P LASIK surgery H/O wisdom tooth extraction Family History Aunt Breast cancer Maternal Ovarian cancer Other Lung cancer Renal cell carcinoma Denies family history of Prostate cancer Colorectal cancer Social History Smoking Status: Light tobacco smoker Tobacco Type: Cigarettes Second Hand Exposure: No; Do You Dip or Chew Tobacco: No; Hx Alcohol Use: Yes Alcohol type: beer and wine Hx Substance Use: No Preferred Language: Albanian Communication Ability: Effective Regional Maintenance Manager Required: No Beliefs That Will Affect Care: None Current Living Situation: Spouse Feels Safe at Home: Yes Safety Concerns: Feels Safe At This Time Assistive Devices: None Review of Systems Review of Systems: All systems reviewed & are unremarkable except as noted in HPI & below Physical Exam Constitutional: WD/WN, vitals as above Eyes: PERRL, conjunctivae normal, anicteric sclerae ENMT: external ear and nose normal, oropharynx normal Respiratory: normal respiratory effort, lungs clear to auscultation Cardiovascular: RRR, no murmur, no edema Gastrointestinal (Abdomen): normal bowel sounds, soft, nontender, no hepatosplenomegaly Musculoskeletal: no cyanosis or clubbing, extremities motor strength 5/5 Skin: no rashes, warm and dry Neurologic: deep tendon reflexes 2+ bilaterally (mildly reduced lower extremity compared to upper extremity), moves all extremities and awake; no focal motor deficits and not confused Speech / Cognition: normal speech Motor/Sensory: no tremor, normal movement, no pronator drift and no sensory deficit Cranial Nerves: PERRL, EOM intact bilaterally, normal facial strength, tongue midline, able to rotate head bilaterally, able to elevate shoulders bilaterally, no nystagmus and symmetric palate elevation Psychiatric: A+Ox3, euthymic affect Results & Data Results & Data Vital Signs (Past 12 Hours) Vital Signs Temp Pulse Pulse Resp BP BP Pulse Ox 06/01/23 14:00 74 18 130/80 99 06/01/23 12:00 66 16 120/78 98 06/01/23 10:16 62 18 137/86 96 06/01/23 08:23 36.7 C 73 20 151/90 H 99 O2 Del Method 06/01/23 14:00 Room Air 06/01/23 12:00 Room Air 06/01/23 10:16 Room Air 06/01/23 08:23 Room Air Laboratory Results Abnormal lab results 06/01/23 Range/Units 09:27 [place] # (Auto) 0.64 H (0.11-0.59) K/uL Potassium 3.3 L (3.5-5.1) mmol/L Chloride 108 H (98-107) mmol/L BUN/Creatinine Ratio 26.3 H (10-20) AST 11 L (13-39) U/L Diagnostic Findings CT angio neck with con CLINICAL HISTORY: R sided headache x 10 days, severe TECHNIQUE: CT angiography of the neck was performed following intravenous administration of iodinated contrast. Coronal and sagittal MIPS were obtained from the axial data set and were submitted for review. Automated dose lowering techniques and/or adjustment according to patient size were utilized for this examination. All measurements were calculated based on NASCET criteria. Comparison: None available at the time of this dictation. FINDINGS: Lungs and soft tissues are unremarkable. CTA Neck: A 3 vessel aortic arch is shown. There is no significant atherosclerotic plaque in the aortic arch or the origins of the innominate, left common carotid, and left subclavian arteries. The common carotid, external carotid, cervical segments of the internal carotid arteries, and the cervical segments of the vertebral arteries are patent without hemodynamically significant stenosis. The left vertebral artery is dominant. IMPRESSION: No occlusion, hemodynamically significant stenosis, or dissection in the major cervical arteries. CT angio head wo/w CLINICAL HISTORY: R sided headache x 10 days, severe COMPARISON STUDY: Head CT May 30, 2023. TECHNIQUE: Unenhanced and arterial phase imaging of the head was performed. Intravenous injection of 119 cc of Optiray 320 IV was uneventful. Sagittal and coronal reconstructions were viewed as well as maximal intensity projections on an independent 3-D workstation. Automated exposure control was utilized for the study. A dose lowering technique was utilized adhering to the principles of ALARA. FINDINGS: No acute intracranial hemorrhage, midline shift or mass effect is present. Ventricular system is normal. Basal cisterns are patent. There are no extra-axial collections. Cates-white differentiation is maintained. There are no findings to suggest acute dural sinus thrombosis or acute territorial infarct. Bilateral basal ganglia calcification is incidentally noted. The bilateral M1, M2, A1 and A2 segments are patent. There is no vessel occlusion. Posterior circulation is intact. There is no intracranial aneurysm. Major dural sinuses are patent. IMPRESSION: 1. No acute intracranial findings. 2. Unremarkable CTA of the head. Medications Administered ER medications given: Metoclopramide 5 mg IV Diphenhydramine 25 mg IV Normal saline 1 L bolus Acetaminophen 650 mg p.o. Toradol 10 mg IV Dexamethasone 10 mg IV Magnesium sulfate 1 g IV Lorazepam 1 mg IV Code Status & VTE Plan Code Status Full VTE Prophylaxis Plan VTE Prophylaxis will be ordered: No Reason for no VTE drug order: Treatment not indicated Reason for no VTE mechanical prophylaxis: Treatment not indicated PG Care Time/CCT Total # of Minutes Spent Total Time Spent: 90 Total Time Spent with Patient: Total time spent is greater than 50% in coordination of care (as documented) at patient's floor/unit and/or counseling patient: Coding Level of Care Code 67502 INT INP/OBS CARE 3/75MIN Diagnoses Acute headache R51.9
[2023-06-01 16:48] LABS: Cryptococcus neoformans/ga PCR Not Detected (NotDetected); Cytomegalovirus PCR Not Detected (NotDetected); Enterovirus PCR Not Detected (NotDetected); Escherichia coli K1 PCR Not Detected (NotDetected); Haemophilius influenzae PCR Not Detected (NotDetected); Herpes Simplex Virus 1 PCR Not Detected (NotDetected); Herpes Simplex Virus 2 PCR Not Detected (NotDetected); Human Herpes Virus 6 PCR Not Detected (NotDetected); Human Parechovirus PCR Not Detected (NotDetected); Listeria monocytogenes PCR Not Detected (NotDetected); Neisseria meningitidis PCR Not Detected (NotDetected); Streptococcus agalactiae PCR Not Detected (NotDetected); Streptococcus pneumoniae PCR Not Detected (NotDetected); Varicella Zoster Virus PCR Not Detected (NotDetected)
[2023-06-01] MEDS ORDERED: POTASSIUM CHLORIDE CRTAB 20 MEQ TABCR PO STA (16:52)
[2023-06-01 17:20] LABS: Appearance Urine Clear (Clear); Bilirubin Urine Negative (Negative); Blood Urine 3+ (Negative); Color Urine Yellow; Glucose Urine UA Negative (Negative); Ketones Urine Negative (Negative); Leukocyte Esterase Urine Negative (Negative); Nitrite Urine Negative (Negative); Protein Urine Negative (Negative); Specific Gravity Urine 1.026 (1.000-1.030); Urobilinogen Urine Negative (Negative)
[2023-06-01 17:44] LABS: Bacteria Urine Negative (Negative); RBC Urine >30 /hpf (0-4); WBC Urine 0-5 /hpf (0-5)
[2023-06-01] MEDS ORDERED: GADOBUTROL 65ML VIAL IV ONE (19:59)
[2023-06-01] MEDS ORDERED: VALPROATE SOD 500 MG in DEXTROSE 5% 50 ML IV PRN (20:22)
[2023-06-01] MEDS ORDERED: ACETAMINOPHEN 325 MG TAB PO PRN (20:22)
--- NOTE | 2023-06-01 21:01 | Magnetic Resonance Report ---
Exam(s): MRI HEAD W/WO Contrast IV Amt: 7.5mL Gadavist given IV EXAM: MR Head Without and With Intravenous Contrast CLINICAL HISTORY: Reason for exam: new onset severe headache, R > L. TECHNIQUE: Magnetic resonance images of the head/brain without and with intravenous contrast in multiple planes. CONTRAST: Patient received 7.5mL Gadavist given IV of IV contrast COMPARISON: CT head from June 01, 2023 FINDINGS: Brain: Unremarkable. No mass. No hemorrhage. No acute infarct. No areas of abnormal enhancement. Ventricles: Unremarkable. No ventriculomegaly. Bones/joints: Unremarkable. No acute fracture. Sinuses: Unremarkable as visualized. No acute sinusitis. Mastoid air cells: Unremarkable as visualized. No mastoid effusion. Orbits: Unremarkable as visualized. IMPRESSION: Normal head/brain MRI. Electronically signed by: Frandy Diaz MD 06/01/23 21:00 PM
[2023-06-01] MEDS: LACTATED RINGER'S 1,000 ML IV SCH (21:41)
[2023-06-01] MEDS: ACETAMINOPHEN 500 MG TAB PO SCH (21:41)
[2023-06-01] MEDS: KETOROLAC 30 MG/ML VIAL IV PRN (21:41)
[2023-06-01] MEDS: DOXYCYCLINE HYCLATE 100 MG CAP PO SCH (21:50)
[2023-06-02] MEDS: LACTATED RINGER'S 1,000 ML IV SCH (05:38)
[2023-06-02] MEDS: KETOROLAC 30 MG/ML VIAL IV PRN (05:38)
[2023-06-02] MEDS: ACETAMINOPHEN 500 MG TAB PO SCH ×2 (07:18→13:19)
[2023-06-02] MEDS: DOXYCYCLINE HYCLATE 100 MG CAP PO SCH (07:19)
--- NOTE | 2023-06-02 09:52 | Neurology Consultation ---
Date of Consultation June 02, 2023 Assessment & Plan (1) Intractable headache: (2) Positive Lyme disease serology: Plan This patient developed progressive, intractable headaches 1 or 2 days after returning from a [place] in mid May. These headaches are likely a migraine variant (transformed migraine) of uncertain trigger or etiology. Neurologic examination is unremarkable/normal with no focal findings, meningeal signs, or encephalopathy. Extensive testing including laboratory studies, lumbar puncture, CT angiography of the head and neck, CT scan of the head, and MRI of the brain with and without contrast have all been unremarkable/normal. She does not have fever, elevated white count, or any signs of inflammation/infection. The patient has a weak positive IgM Lyme antibody titer with 3 months of some nonspecific arthralgias. I have seen Lyme disease create significant headaches but she has no signs of infection. Recommendations: 1. Continue doxycycline for 3 weeks 100 mg twice daily 2. Consider 6 mg subcutaneous sumatriptan to see if this helps her headache. 3. Other options include continuing ketorolac 30 mg IV every 6 hours as needed, IV or p.o. Tylenol, and repeating the IV Depakote 500 mg 1 more time. 4. Avoid narcotics if possible 5. If sumatriptan does not help, could consider Nurtec 75 mg 6. Increase activity as able. 7. Could initiate prednisone 60 mg a day for 2 days, 50 mg a day for 2 days, 40 mg a day for 2 days, 30 mg a day for 2 days, 20 mg a day for 2 days, 10 mg a day for 2 days then discontinue. If this is selected I would discontinue ketorolac 8. Another option to break protracted headaches would be Zyprexa 5 mg a day for 3 days. 9. We could follow-up as an outpatient once able to be discharged. I see no need for additional testing at this time. Overall, I spent a total of 90 minutes with this case including review of records, review of MRI films, direct evaluation of the patient at bedside, report generation, and discussion of the case with the patient and RN at bedside and Dr. Moran including differential diagnosis and treatment options. History of Present Illness Reason for Consultation: Patient is a 48-year-old, who I was asked to see at the request of Dr. Power, for neurologic consultation regarding new onset headaches. Requesting Physician: Dr. Power Attending Physician: Мария Moran MD History of Present Illness Patient has no history of migraine or other significant headaches. She has no history of hypertension, diabetes, heart disease, asthma, ulcers, head trauma, stroke, or any other significant illness or condition. She does tell me that she has had several months of joint pain in the hands and legs of a intermittent nature. The patient went on a 1 week [place] in early May, returning home May 20. She was not ill prior or during the trip. 1 or 2 days later she woke up with a significant bifrontal/bitemporal throbbing headache without nausea, vomiting, photophobia, or phonophobia. She did have a "bloody nose" that first day. Aheq-[id number] medications did not help. Over the next week the headache persisted and worsened in intensity. The patient could wake up in the middle the night with a severe headache. The headache never went away but might wax and wane. Nothing she did specifically would make it worse or better otherwise. It was not positional. She was not ill with any congestion, fever, cough, and she had no other symptoms such as visual problems, cognitive issues, weakness, numbness, balance problems, or dizziness. 1 day she did have some tinnitus however. She arrived to the emergency room May 30 with a 9 out of 10 headache. Exam was normal as was a CT scan of the head. Vital signs were unremarkable and CBC was normal. There was no signs of infection or fever. CHEM profile was unremarkable. Antibody test was positive IgM (negative IgG). 1 band was positive. In the ER she was given 10 mg dexamethasone, 50 mg diphenhydramine, 10 mg ketorolac, and 10 mg prochlorperazine. Her headache improved and she was discharged. She was put on a tapering prednisone course starting at 50 mg, and doxycycline 100 mg twice daily. Her headaches are bifrontal/bitemporal of the throbbing nature. She does not have significant photophobia or phonophobia but does have some nausea particularly in the morning the last few days. She has had no vomiting. Over the last few days it is radiated to the right moravian more than the left and back into the right occiput. She does not have neck pain. Position changes do not affect the headache. The patient's headaches returned again and she returned to the emergency room June 01 with a increasing 7 out of 10 headache. Again vital signs were unremarkable although blood pressure was mildly elevated at first at 151/90. CBC and CHEM profile were unremarkable. She was not . CT scan of the head was unremarkable. CT angiography of the head and neck were normal without any vascular stenoses or anomalies. Lumbar puncture was performed and was clear and colorless. There was no xanthochromia. There were no white cells or red cells, protein was 28 glucose 66, Gram stain was negative and BioFire was negative. CSF Lyme antibody titers are pending. MRI of the brain with and without contrast was unremarkable/normal. I reviewed these films. Again, medications were given for her headache including acetaminophen, 10 mg of IV dexamethasone, 25 mg diphenhydramine, magnesium sulfate 1 g, ketorolac 10 mg, lorazepam 1 mg, metoclopramide 5 mg, and normal saline with potassium. She was given 500 mg IV Depakote. Overnight she did well and woke up at 0520 this morning with a headache approximately 1-2 out of 10. By 0600 it was worse and 30 mg ketorolac followed by Tylenol helped only a little. Currently, at 0900, her headache is 34 out of 10. I get the impression that anything we give her knocks her headache down some, but it just comes right back eventually. Overall she does not seem to be as severe as she was on admission. Allergies Allergy/AdvReac Type Severity Reaction Status Date / Time escitalopram Allergy Intermediate rash/numb Verified 05/30/23 10:45 Home Medications Medication Instructions Recorded Confirmed Type doxycycline hyclate 100 mg tablet 100 mg PO BID 14 days #28 tabs 05/30/23 06/01/23 Rx prednisone 50 mg tablet 50 mg PO DAILY 5 days #5 tabs 05/30/23 06/01/23 Rx Patient History Medical History History of diverticulitis History of COVID-19 05/2020 - loss of taste and smell for about 1 year Early December 2021 -- severe fatigue, severe muscle pain, fever, cough > resolved H. pylori infection Hx (has had it a total of 14 times, last time in November 2021) Infertility Hx of fertility drugs, clomid Breast cyst Surgical History History of reduction mammoplasty History of esophagogastroduodenoscopy (EGD) History of colonoscopy S/P LASIK surgery H/O wisdom tooth extraction Family History Aunt Breast cancer Maternal Ovarian cancer Other Lung cancer Renal cell carcinoma Denies family history of Prostate cancer Colorectal cancer Social History (Updated 06/02/23 @ 09:41 by Jerrell Monsivais MD) Smoking Status: Light tobacco smoker Tobacco Type: Cigarettes Cigarettes Per Day: 1 pack/month; Second Hand Exposure: No; Do You Dip or Chew Tobacco: No; Hx Alcohol Use: Yes Alcohol type: beer and wine Alcohol Intake Frequency: Monthly or Less Hx Substance Use: No Preferred Language: Greenlandic Communication Ability: Effective Senior Accountant Required: No Beliefs That Will Affect Care: None Current Living Situation: Spouse current occupational status: employed current occupation: Events and perl programmer, [employer], [employer] Feels Safe at Home: Yes Safety Concerns: Feels Safe At This Time Assistive Devices: None Review of Systems Constitutional: no fever, no fatigue and no weakness Eyes: no diplopia, no eye pain and no worsening vision Ear, Nose, Mouth, Throat: no ear pain, no tinnitus, no hearing loss, no dizziness, no snoring, no hoarseness and no dysphagia Respiratory: no cough and no dyspnea Cardiovascular: no chest pain, no palpitations and no lightheadedness Gastrointestinal: no abdominal pain, no nausea and no vomiting Genitourinary: no dysuria, no urinary frequency and no urinary incontinence Musculoskeletal: no back pain, no neck pain, no radicular pain, no joint pain and no myalgia Integumentary: no rash and no lesions Neurologic: + headache(s); no gait abnormality, no l ocalized weakness, no generalized weakness, no tingling, no numbness, no tremor(s), no abnormal movements, no abnormal speech, no confusion and no memory loss Psychiatric: no depression, no irritability, no anxiety, no difficulty concentrating, no confusion and no hallucinations Endocrine: no fatigue and no flushing Hematologic / Lymphatic: no easy bleeding and no easy bruising Allergy / Immunological: no urticaria and no problem reported Exam (Neuro) Physical Exam: The patient is right-handed. The patient is awake, alert, and attentive. Speech is normal without any aphasia or dysarthria. Mentation and thought processes are intact, with full orientation and normal fund of knowledge. Mood and affect are normal and appropriate. Appearance and grooming are normal. Short and long-term memory are intact. Pupils are 4 mm bilaterally and reactive to light. Extraocular eye muscles are intact without nystagmus. Visual acuity and visual nichols seem normal grossly to confrontation. There are no deficits to sensation in the face in all 3 distributions of the fifth cranial nerve bilaterally. Corneal reflexes are positive bilaterally. Facial strength and symmetry was normal bilaterally. Hearing seems intact grossly to voice and finger rub bilaterally. Palate moves well without asymmetry. There is normal sternocleidomastoid and trapezius strength bilaterally. Tongue is midline with good strength bilaterally. Neck has a full range of motion without discomfort. There are no cervical bruits bilaterally. There are no cranial or ocular bruits. Heart is without murmur. There is a regular rhythm and rate. Cervical, thoracic, and lumbar spine are nontender to palpation. Gait is narrow based, with good arm swing, turns, and stance. Balance is normal eyes open or closed. With outstretched arms there is no drift. There are no resting, postural, or action tremors. There is no ataxia with finger to nose testing. There is good facility in the hands. No other abnormal involuntary movements are noted. Motor strength is 5/5 diffusely in the arms bilaterally including deltoids, biceps, triceps, brachioradialis, wrist flexors and extensors, artificial stone setter, and intrinsic hand muscles. Motor strength is 5/5 diffusely in the legs bilaterally including hip flexors, quadriceps, hamstrings, gastrocnemius, tibialis anterior, tibialis posterior, and Peroneii muscles bilaterally. Toe extensors are normal and there is good bulk in the extensor digitorum brevis muscles bilaterally. The limbs have good tone without rigidity or spasticity. There is no atrophy noted in the muscles. Muscle bulk is normal, there is no tenderness to palpation, no myotonia to percussion, and no fasciculations seen. Sensory examination is intact to touch and pin throughout all 4 limbs diffusely. Reflexes are 2/4 in the biceps, triceps, brachioradialis, quadriceps, and Achilles tendons bilaterally. Toes are downgoing with plantar stimulation bilaterally. Peripheral pulses are present and of normal quality distally in all 4 limbs. There is no peripheral edema noted in the limbs. Results & Data Vital Signs (Past 12 Hours) Vital Signs Temp Pulse Resp BP Pulse Ox O2 Del Method 06/02/23 07:45 36.7 C 60 16 123/81 99 Room Air PG Care Time/CCT Total # of Minutes Spent Total Time Spent with Patient: Total time spent is greater than 50% in coordination of care (as documented) at patient's floor/unit and/or counseling patient: Coding Level of Care Code 78906 INT INP/OBS CARE 3/75MIN Diagnoses Intractable headache R51.9 Positive Lyme disease serology R76.8 Time Spent (min) 90 Comment Add modifiers as able
[2023-06-02] MEDS ORDERED: SUMAtriptan succinate 6 MG/0.5 ML VIAL SQ STA ×2 (10:01→11:08)
--- NOTE | 2023-06-02 13:41 | Discharge Summary ---
Date of Service June 02, 2023 Admission HPI Per Admitting Provider Eunice Almonte is a 48-year-old female who presents to the ER with headache. She was seen in the emergency room 2 days ago with the same complaint having had it for the last week. She was recently on a cruise to the [facility] returning approximately 2 weeks ago. The headache started a few days after she got back possibly associated with a nose bleed. Initially attributed to the change in weather. Bilateral frontal/temporal/maxillary. No associated photophobia, nausea, dizziness. She has no significant history of headaches or migraines. In the ER 2 days ago she received dexamethasone, diphenhydramine, normal saline, Toradol, Compazine. Her headache improved and she was discharged with a possible diagnosis of Lyme disease with initial total Immunoassay positive for IgM but subsequent Western Blot with only 1/3 immunoglobulins positive. She has been taking doxycycline but her headache has continued to get worse and has changed now to be more on just the right side and going more posteriorly. Getting progre ssively worse every day. She is not sleeping and waking up with a headache every morning around 2:30am. Taking ibuprofen only helps for around an hour. Despite additional headache cocktail in the ER of metoclopramide, diphenhydramine, NSS 1L bolus, Acetaminophen, Toradol, Dexamethasone, Magnesium sulfate and lorazepam her headache remains. She denies any head injury or significant neck strain. She was seen by her food production associate yesterday due to concern perhaps she needed a prescription however no problems with her eyes were found. Sexual active with her . No illicit substances, marijuana use or daily alcohol use. Occasional cigarettes (socially x3/month). Admission Exam Per Admitting Provider Constitutional: WD/WN, vitals as above Eyes: PERRL, conjunctivae normal, anicteric sclerae ENMT: external ear and nose normal, oropharynx normal Respiratory: normal respiratory effort, lungs clear to auscultation Cardiovascular: RRR, no murmur, no edema Gastrointestinal (Abdomen): normal bowel sounds, soft, nontender, no hepatosplenomegaly Musculoskeletal: no cyanosis or clubbing, extremities motor strength 5/5 Skin: no rashes, warm and dry Neurologic: deep tendon reflexes 2+ bilaterally (mildly reduced lower extremity compared to upper extremity), moves all extremities and awake; no focal motor deficits and not confused Speech / Cognition: normal speech Motor/Sensory: no tremor, normal movement, no pronator drift and no sensory deficit Cranial Nerves: PERRL, EOM intact bilaterally, normal facial strength, tongue midline, able to rotate head bilaterally, able to elevate shoulders bilaterally, no nystagmus and symmetric palate elevation Psychiatric: A+Ox3, euthymic affect Principal Diagnosis Intractable migraine Discharge Exam General: Well-appearing, NAD HEENT: EOM grossly intact, normal conjunctivae Pulmonary: Breathing comfortably on RA, no active cough Integumentary: No suspicious rash or lesion on exposed skin Neurologic: AAOx3, no focal deficits, normal fluent speech, moving all extremities Psychiatric: Appropriate mood/affect Discharge Data Allergies Allergy/AdvReac Type Severity Reaction Status Date / Time escitalopram Allergy Intermediate rash/numb Verified 05/30/23 10:45 Consultations 06/01/23 14:01 ED Decision to Admit Stat 06/01/23 21:23 Consult Neurology Routine Ordered Studies 06/01/23 09:07 CT angio head wo/w Stat CT angio neck with con Stat 06/01/23 18:00 MRI Brain [MR brain wo/w con] Urgent Hospital Course (1) Acute headache: Unremarkable CT head/CT angiogram head/neck Unremarkable brain MRI No significant headache history ESR within normal limits and not typical story of giant cell arteritis Lyme IgM 1/3 positive essentially nondiagnostic of Lyme disease per CDC guidance, however will continue treatment course previously prescribed and add additional 1 week to complete 3-week course per neurology recommendation Lumbar spinal fluid Lyme testing pending Lumbar puncture unremarkable Neurology consulted and case discussed with Dr. Horn likely migraine variantmultiple possible treatment recommendations provided Patient given 2 doses of sequential subcutaneous sumatriptan today which significantly improved her headache, nearly back to baseline Oral sumatriptan prescribed on discharge Discontinued prednisone that she was started on a couple days ago as it had not been helping her headache Consider outpatient neurology follow up or headache clinic follow up Total Time Total Time Spent Total Time Spent (In Minutes): 45 Total Time Includes: Examination of the Patient, Discharge Planning, Medication Reconciliation and Communication With Other Providers Discharge Plan Discharge Items Patient Disposition: Home - Self-Care Reason For Visit: HEADACHE Discharge Diagnosis: Intractable Migraine Condition on Discharge: Good Activity: Resume your previous activity Non-emergency contact: Primary Care Provider Call non-emergency contact if: your symptoms worsen Follow-up/Referrals: Brenda Riley, [Primary Care Provider] - Diet: Regular Addtl Attending Provider Instructions: You are admitted with an intractable headache that is likely to be a severe migraine. Your CT scan performed on your head and neck was normal. Your brain MRI was normal. Your lumbar puncture was normal. You were seen by the neurologist who agrees your symptoms are related to a severe migraine. You are instructed to complete a total of 3 weeks of doxycycline therapy. A prescription for 1 additional week was sent to your pharmacy to take after finishing your previous prescription. Recommend discontinuing the prednisone therapy as this was not seeming to help your headache. Sumatriptan (Imitrex) seemed to help your headache the most while you are in the hospital. Oral sumatriptan was sent to your pharmacy. You can start this as soon as 06/03 if your headache returns. Take per prescription instructions. Make sure you have follow-up with your PCP. If you have ongoing issues with headache, follow-up with neurology or talk with your PCP about a referral to the headache clinic. Pending Studies at Discharge: Yes Studies:: Spinal fluid Lyme, Final results of serum tick-borne illness panel Stand-Alone Forms: My [facility] Medications and DC Order Prescriptions: New sumatriptan succinate 50 mg tablet See Rx Instructions .ROUTE .COMPLEX Qty: 10 0RF Rx Instructions: take 1 tab at onset of headache; if no relief may repeat 1 tab after at least 2 hrs; max = 4 tabs/24 hr doxycycline hyclate 100 mg tablet 100 mg PO BID 7 Days Qty: 14 0RF Rx Instructions: Take after completing 2 weeks of previously prescribed doxycycline for full 3 weeks of medication Continued doxycycline hyclate 100 mg tablet 100 mg PO BID 14 Days Qty: 28 0RF Discontinued prednisone 50 mg tablet 50 mg PO DAILY 5 Days Qty: 5 0RF Discharge Orders: Discharge Order (Routine); Ordered 06/02/23 Ordered By: Мария Moran Admission Data Admit Date/Time: 06/01/23 15:33 Attending Provider: Мария Moran Admit Provider: Daron Power Primary Care Provider: Brenda Riley Other Providers: Daron Power; Jerrell Monsivais Coding Level of Care Code 77159 INP/OBS DISCH >30 MIN Diagnoses Acute headache R51.9
== END 2023-06-02 14:09 | disposition home or self-care (01) ==
LOC: ED 08:15 → EDINP 08:15 → SUATTDRO 15:33 → 3W 20:20